=== PATIENT | female | born 2005 | race Caucasian/White ===

== ENCOUNTER 2024-07-04 12:11 | Emergency (ER) | payer OTHER, SELFPAY ==
[2024-07-04 12:19] VITALS: BP 124/78
[2024-07-04 13:39] VITALS: BMI 21.4
[2024-07-04 13:40] VITALS: BP 109/75
[2024-07-04] MEDS: TYLENOL 1000 MG PO (13:54)
--- NOTE | 2024-07-04 13:58 | ED.GENMED ---
History of Present Illness
<Mercy Agee PA-C - Last Filed: 07/04/24 18:11>
General
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
Source: patient
Exam Limitations: none
Time Seen by Provider: 07/04/24 12:51
Nursing documentation reviewed up to this point in time: agreed with
History of Present Illness
History of Present Illness:
This is a 18-year-old female with no past medical history presenting emergency department for concerns of pelvic pain and flank pain for the past 2 weeks. Patient also notes dysuria and hematuria. Patient states that when it started 2 weeks ago,
she thought could be a UTI. She went to urgent care back when this first started and was diagnosed with a UTI and was prescribed Bactrim for 3 days however they ultimately found UTI testing to be negative. She saw her primary in follow-up who
recommended ultrasound however the ultrasound which was negative for any hydronephrosis. She denies chance of STDs, vaginal bleeding, abnormal vaginal discharge. Patient denies any nausea or vomiting, fevers or chills. Patient denies any upper
abdominal pain. Patient denies any sick contacts recently. Patient denies any history of pregnancies or intrauterine devices.
Review of Systems
<Mercy Agee PA-C - Last Filed: 07/04/24 18:11>
Review of Systems
All Other Systems: ROS reviewed and negative except as documented in HPI and ROS
Phy Exam
<Mercy Agee PA-C - Last Filed: 07/04/24 18:11>
Physical Exam
Physical Exam:
General: Patient is well appearing and in no acute distress; non-toxic
Skin: Warm and dry, no rashes or lesions
Head: Normocephalic, atraumatic
Eyes: Sclera non-icteric. EOMs intact.
Cardiac: Regular rate
Peripheral Vascular:
Pulm: Normal respiratory effort
Abdomen: No abdominal tenderness, mild adnexal tenderness
Musculoskeletal:
Neuro: CN II-XII intact, no focal neurologic deficits.
Psychiatric: Appropriate mood and affect.
Course
<Mercy Agee PA-C - Last Filed: 07/04/24 18:11>
Orders/Labs/Results
Orders:
Orders
07/04/24 13:30
CT Abd/pelvis Wo Iv Cont Urgent
Comment:
Reason For Exam: left flank pain, hematuria
IV Insert/Care/Rem.- Treatment PRN
07/04/24 13:31
Test Result ONCE
07/04/24 13:36
Acetaminophen [Tylenol] 1,000 mg PO NOW STA
07/04/24 13:52
Beta Hcg Urine Qualitative Screen [HCG, Urine Qualitative Screen] Urgent
Date Specimen was Collected: 07/04/24
Time Specimen was Collected: 13:41
Complete Blood Count/With Diff Urgent
Comprehensive Metabolic Panel Urgent
Urinalysis Reflex To Culture Urgent
Date Specimen was Collected: 07/04/24
Time Specimen was Collected: 13:41
Urine Microscopic Reflex Cult Urgent
Urine Culture Urgent
THONG Source: U
Specimen Description:
Date Specimen was Collected: 07/04/24
Time Specimen was Collected: 13:41
07/04/24 15:42
US Transvaginal [US Pelvis W Transvag Combined] Urgent
Comment:
Reason For Exam: pelvic pain
07/04/24 15:43
0.9% Sodium Chloride 500 ml [Nss] 500 ml IV BOLUS
Ketorolac [Toradol] 15 mg IV NOW STA
Abnormal Lab Results
07/04/24
13:52
Hct 36.9 L %
(37.0-47.0)
Absolute Neuts (auto) 8.1 H 10^3/uL
(1.4-6.5)
Neutrophils % 79.4 H %
(42.2-75.2)
Lymphocytes % 15.4 L %
(20.5-51.1)
Glucose 101 H mg/dl
(70-99)
Ur Occult Blood Reflex 2+ A
(Negative)
Leukocyte Esterase Rfl 1+ A
(Negative)
Urine RBC 3-6 A /HPF
(0-2)
Urine WBC (Reflex) 11-15 A /HPF
(0-5)
Urine Bacteria (Reflex) Few A
(Negative)
07/04/24 13:52
07/04/24 13:52
Vital Signs
Initial and Last Documented VS:
Initial Vital Signs
Temp Pulse Resp BP Pulse Ox
98.7 F 84 18 124/78 99
07/04/24 12:19 07/04/24 12:19 07/04/24 12:19 07/04/24 12:19 07/04/24 12:19
Last Documented Vital Signs
Temp Pulse Resp BP Pulse Ox
98.7 F 80 18 120/71 97
07/04/24 12:19 07/04/24 17:19 07/04/24 12:19 07/04/24 17:19 07/04/24 17:19
<Mendoza Decker, DO - Last Filed: 07/04/24 13:59>
Orders/Labs/Results
Orders:
Orders
07/04/24 13:30
CT Abd/pelvis Wo Iv Cont Urgent
Comment:
Reason For Exam: left flank pain, hematuria
IV Insert/Care/Rem.- Treatment PRN
07/04/24 13:31
Test Result ONCE
07/04/24 13:36
Acetaminophen [Tylenol] 1,000 mg PO NOW STA
07/04/24 13:52
Beta Hcg Urine Qualitative Screen [HCG, Urine Qualitative Screen] Urgent
Date Specimen was Collected: 07/04/24
Time Specimen was Collected: 13:41
Complete Blood Count/With Diff Urgent
Comprehensive Metabolic Panel Urgent
Urinalysis Reflex To Culture Urgent
Date Specimen was Collected: 07/04/24
Time Specimen was Collected: 13:41
Urine Microscopic Reflex Cult Urgent
Urine Culture Urgent
THONG Source: U
Specimen Description:
Date Specimen was Collected: 07/04/24
Time Specimen was Collected: 13:41
07/04/24 15:42
US Transvaginal [US Pelvis W Transvag Combined] Urgent
Comment:
Reason For Exam: pelvic pain
07/04/24 15:43
0.9% Sodium Chloride 500 ml [Nss] 500 ml IV BOLUS
Ketorolac [Toradol] 15 mg IV NOW STA
Abnormal Lab Results
07/04/24
13:52
Hct 36.9 L %
(37.0-47.0)
Absolute Neuts (auto) 8.1 H 10^3/uL
(1.4-6.5)
Neutrophils % 79.4 H %
(42.2-75.2)
Lymphocytes % 15.4 L %
(20.5-51.1)
Glucose 101 H mg/dl
(70-99)
Ur Occult Blood Reflex 2+ A
(Negative)
Leukocyte Esterase Rfl 1+ A
(Negative)
Urine RBC 3-6 A /HPF
(0-2)
Urine WBC (Reflex) 11-15 A /HPF
(0-5)
Urine Bacteria (Reflex) Few A
(Negative)
07/04/24 13:52
07/04/24 13:52
Vital Signs
Initial and Last Documented VS:
Initial Vital Signs
Temp Pulse Resp BP Pulse Ox
98.7 F 84 18 124/78 99
07/04/24 12:19 07/04/24 12:19 07/04/24 12:19 07/04/24 12:19 07/04/24 12:19
Last Documented Vital Signs
Temp Pulse Resp BP Pulse Ox
98.7 F 80 18 120/71 97
07/04/24 12:19 07/04/24 17:19 07/04/24 12:19 07/04/24 17:19 07/04/24 17:19
<Viktor Man PA-C - Last Filed: 07/07/24 09:28>
Orders/Labs/Results
Orders:
Orders
07/04/24 13:30
CT Abd/pelvis Wo Iv Cont Urgent
Comment:
Reason For Exam: left flank pain, hematuria
IV Insert/Care/Rem.- Treatment PRN
07/04/24 13:31
Test Result ONCE
07/04/24 13:36
Acetaminophen [Tylenol] 1,000 mg PO NOW STA
07/04/24 13:52
Beta Hcg Urine Qualitative Screen [HCG, Urine Qualitative Screen] Urgent
Date Specimen was Collected: 07/04/24
Time Specimen was Collected: 13:41
Complete Blood Count/With Diff Urgent
Comprehensive Metabolic Panel Urgent
Urinalysis Reflex To Culture Urgent
Date Specimen was Collected: 07/04/24
Time Specimen was Collected: 13:41
Urine Microscopic Reflex Cult Urgent
Urine Culture Urgent
THONG Source: U
Specimen Description:
Date Specimen was Collected: 07/04/24
Time Specimen was Collected: 13:41
07/04/24 15:42
US Transvaginal [US Pelvis W Transvag Combined] Urgent
Comment:
Reason For Exam: pelvic pain
07/04/24 15:43
0.9% Sodium Chloride 500 ml [Nss] 500 ml IV BOLUS
Ketorolac [Toradol] 15 mg IV NOW STA
Abnormal Lab Results
07/04/24
13:52
Hct 36.9 L %
(37.0-47.0)
Absolute Neuts (auto) 8.1 H 10^3/uL
(1.4-6.5)
Neutrophils % 79.4 H %
(42.2-75.2)
Lymphocytes % 15.4 L %
(20.5-51.1)
Glucose 101 H mg/dl
(70-99)
Ur Occult Blood Reflex 2+ A
(Negative)
Leukocyte Esterase Rfl 1+ A
(Negative)
Urine RBC 3-6 A /HPF
(0-2)
Urine WBC (Reflex) 11-15 A /HPF
(0-5)
Urine Bacteria (Reflex) Few A
(Negative)
07/04/24 13:52
07/04/24 13:52
Vital Signs
Initial and Last Documented VS:
Initial Vital Signs
Temp Pulse Resp BP Pulse Ox
98.7 F 84 18 124/78 99
07/04/24 12:19 07/04/24 12:19 07/04/24 12:19 07/04/24 12:19 07/04/24 12:19
Last Documented Vital Signs
Temp Pulse Resp BP Pulse Ox
98.7 F 80 18 120/71 97
07/04/24 12:19 07/04/24 17:19 07/04/24 12:19 07/04/24 17:19 07/04/24 17:19
Elsylt;Mercy Agee PA-C - Last Filed: 07/04/24 18:11>
MDM/Problems Addressed
Differential Diagnosis Includes:
Differentials include urine tract affection, pyelonephritis, kidney stone, interstitial cystitis, loin pain hematuria syndrome, ruptured ovarian cyst
MDM/Problems Addressed:
18-year-old female presents emergency department after 2 weeks of pelvic pain with intermittent hematuria and dysuria. Patient also developed flank pain. Patient ultrasound was negative for hydronephrosis. She was started on Bactrim which she
finished a course of but she did have a reaction to. Her culture came back negative at that time. Here in the emergency department, she is well-appearing, she is no tenderness on exam, her vitals are stable, she is afebrile, she has no
leukocytosis. She has no RAJ. Her urinalysis does show hematuria and some white cells but no clear evidence of UTI at this time. Will await culture. Patient had a CAT scan which was negative for any stone. Ultrasound showed normal flow of the
ovaries and no evidence of any other abnormalities. Patient stable for discharge at this point. Did discuss return precautions and did discuss follow-up with urogynecology and urology. Patient stable for discharge.
Chronic conditions affecting care:
n/a
Acute Exacerbation and/or Progression of Chronic Illness:
n/a
<Mercy Agee PA-C - Last Filed: 07/04/24 18:11>
*Critical Care Note
Total Time (30-74mins, 75-104mins- exclusive of procedures): Not Applicable
<Viktor Man PA-C - Last Filed: 07/07/24 09:28>
Update Note
Update Note:
07/07/2024 0925: Left message for patient. UCx positive for staph saprophyticus 100k, will send Rx for Macrobid
ED Attending Note
<Mercy Agee PA-C - Last Filed: 07/04/24 18:11>
-
Portions of this chart may have been created with voice recognition software.� Occasional wrong word or��sound alike� substitutions may have occurred due to the inherent limitations of voice recognition software.
<Mendoza Decker DO - Last Filed: 07/04/24 13:59>
ED Attending Note
Patient seen and examined by attending physician: Yes
I performed the substantive portion of visit, reviewed & personally made and approve the management plan that is documented in note by myself or CHARLOTTE.: Yes
ED Attending Note:
Seen with PA examined independently agree with assessment and plan
Will check labs hCG stone search CT if unremarkable consideration for pelvic ultrasound
Discharge Plan
Departure
Patient Disposition: Home (Routine Discharge)
Date of Disposition: 07/04/24
Time of Disposition: 17:14
Patient with high blood pressure during this ER visit?: No
Condition: Good
Discharge Problem:
Pelvic pain, Hematuria
Instructions: Blood in the urine (hematuria) in adults, Pelvic Pain, BLOOD PRESSURE
Prescriptions:
New
nitrofurantoin macrocrystal 100 mg capsule
100 mg PO BID 5 Days Qty: 10 0RF
No Action
ofloxacin [Ocuflox] 5 ML drops
1 - 2 drops ophthalmic (eye) QID Qty: 1 0RF
Referrals:
Zaheer Colon MD [Non-Admitting Privileges] - Call in 1-3 days for appt
Agusto Moses, [Family Provider] -
Stand Alone Forms: Return to Work
Activity Restrictions/Additional Instructions:
You will receive a call with the results of your urine culture.
Your CAT scan today did not show any evidence of a intra-abdominal abnormality but did show a large amount of stool within the colon. Your ultrasound of the pelvis was negative for any ovarian torsion or ovarian cyst or masses. Your lab work here
is unremarkable.
I recommend starting to take miralax.
PLEASE CALL [phone] to schedule an appointment with [facility]. You can also call the attached number for general urology.
Please return to the emergency department should you develop fevers or chills, acute worsening of your symptoms.
Interventions
Interventions:
*Risk Screen - Suicide Last Done: 07/04/24 13:39
*General Assessment Last Done: 07/04/24 13:39
*Neglect/Abuse Screening Last Done: 07/04/24 13:39
ED- Fall Risk Assessment Last Done: 07/04/24 13:39
*ED COVID-19 Vaccine History Last Done: 07/04/24 13:39
*Nursing Disposition Last Done: 07/04/24 17:19
ED-Female Genitourinary Assessment Last Done: 07/04/24 13:39
Discharge Date and Time
Discharge Date/Time: 07/04/24 17:24
Print Language: BELARUSIAN
[2024-07-04 14:00] VITALS: BP 100/70
[2024-07-04 14:03] LABS: Urine Albumin Negative (Neg - Trace); Urine Bilirubin Negative (Negative); Urine Character Clear (Clear); Urine Color Yellow; Urine Glucose Negative (Negative); Urine Ketone Negative (Negative); Urine Leukocyte 1+ (Negative); Urine Nitrite Negative (Negative); Urine Occult Blood 2+ (Negative); Urine Specific Gravity 1.005 (<1.030); Urine Urobilinogen Negative (Neg - 1+); Urine pH 6.5 (5.0-9.0)
[2024-07-04 14:07] LABS: % Basophils 0.5 % (0-2); % Eosinophils 0.6 % (0-6); % Immature Granulocytes 0.4 % (0-0.5); % Lymphocytes 15.4 % (20.5-51.1); % Monocytes 3.7 % (1.7-9.3); % Neutrophils 79.4 % (42.2-75.2); Absolute Basophils 0.1 10^3/uL (0-0.2); Absolute Eosinophils 0.1 10^3/uL (0-0.7); Absolute Lymphocytes 1.6 10^3/uL (1.2-3.4); Absolute Monocytes 0.4 10^3/uL (0.1-0.6); Absolute Neutrophils 8.1 10^3/uL (1.4-6.5); HCG, Urine Qualitative Screen Negative; Hematocrit 36.9 % (37.0-47.0); Hemoglobin 12.8 g/dL (12.0-16.0); Mean Corp Hgb Conc. 34.7 g/dL (33.0-37.0); Mean Corpuscular Hgb 30.2 pg (27.0-31.0); Mean Platelet Volume 9.5 fL (7.4-10.4); Nucleated Red Blood Cells % 0 %; Platelet Count 232 10^3/uL (130-400); Red Blood Cell Count 4.24 10^6/uL (4.20-5.40); Red Cell Dist. Width 11.7 % (11.5-14.5); White Blood Cell Count 10.2 10^3/uL (4.8-10.8)
[2024-07-04 14:10] LABS: Urine Bacteria Few (Negative)
[2024-07-04 14:29] LABS: ALT (SGPT) 14 U/L (0-35); AST (SGOT) 22 U/L (14-36); Alkaline Phosphatase 42 U/L (38-126); Blood Urea Nitrogen 10 mg/dl (7-17); Calcium 9.9 mg/dl (8.4-10.2); Carbon Dioxide 24 mmol/L (22-30); Chloride 104 mmol/L (98-107); Estimated Creatinine Clearance > 125 ml/min; Glucose 101 mg/dl (70-99); Potassium 3.5 mmol/L (3.5-5.1); Sodium 143 mmol/L (135-145); Total Bilirubin 0.6 mg/dl (0.2-1.3); Total Protein 7.5 g/dl (6.3-8.2); eGFR > 60.00
[2024-07-04] MEDS: NSS 500 IV (16:07)
[2024-07-04] MEDS: TORADOL 15 MG IV (16:07)
[2024-07-04 17:19] VITALS: BP 120/71
== END 2024-07-04 17:24 | disposition home or self-care (01) ==
LOC: EMR 12:11
PROVIDERS: Physician Assistant; EMERGENCY PHYSICIAN Emergency Medicine; FAMILY PHYSICIAN Family Medicine
DX: R31.9 Hematuria, unspecified (principal); R10.2 Pelvic and perineal pain; R30.0 Dysuria; R10.31 Right lower quadrant pain; R10.32 Left lower quadrant pain; N39.0 Urinary tract infection, site not specified; B95.8 Unspecified staphylococcus as the cause of diseases classified elsewhere; Z88.5 Allergy status to narcotic agent
CPT/HCPCS: 99284; 96374; 96361; 74176; 76830; 76856; 80053; 81003; 81015; 81025; 85025; 87086; 87147

== ENCOUNTER 2025-01-10 09:06 | Emergency (ER) | payer OTHER, SELFPAY ==
[2025-01-10 09:09] VITALS: BP 120/86
[2025-01-10 09:35] VITALS: BMI 21.8
--- NOTE | 2025-01-10 09:38 | ED.GENMED ---
History of Present Illness
General
Chief Complaint: Throat Problem
Source: patient
Exam Limitations: none
Time Seen by Provider: 01/10/25 09:12
Nursing documentation reviewed up to this point in time: agreed with
History of Present Illness
History of Present Illness:
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
here with 3 weeks of persistent worsening b/l sore throat
says it started mildly without cold symptoms and fever
just a sore throat
she was taking OTC meds and thought she was getting better until 1 week ago when she started with fevers for a day or two and worsening pain
her voice was never muffled
she also noticed that she had b/l neck gland swelling
pt is able to pass liquids and tolerate secretions but when motrin 400 mg (3 times daily) wears off, she is crying in pain
she went to PCP 4 days ago and was tested for strep, told it was neg, throat uclture was sent and she was empirically started on amoxicillin
she took dose 7 today and hasn't had improvement
no neck stiffness, rash, trouble breathing, cough, abdominal pain, nausa, vomiting
last dose 400 mg motri jonna 730 am
Phy Exam
Physical Exam
Physical Exam:
GENERAL: Alert , in no apparent distress
EYE: pupils equal and reactive
NECK: Supple moderate-sized tender bilateral tonsillar lymphadenopathy, 1 appreciated posterior chain right sided cervical lymph node measuring about 2 cm and mildly tender, no erythema
No meningismus, able to move neck normally
ENT: b/l TM s clear, mild erythematous posterior pharynx with bilateral trace tonsillar exudates, symmetric tonsils, uvula midline, tonsils 2+, normal phonation, no trismus, tolerating secretions
no parotitis
CARDIAC: Regular rate and rhythm, no edema
LUNGS: Clear breath sounds bilaterally, no acute respiratory distress, no wheezes/rales/rhonchi, occ cough
ABDOMEN: Soft, no appreciated splenomegaly without focal tenderness, no r/g, no cvat, normal bowel sounds
NEUROLOGICAL: Alert and oriented, no focal neuro deficits
SKIN: Warm and dry, skin intact.
MUSCULOSKELETAL: No edema, well perfused.
PSYCH: Normal and appropriate interaction.
Course
Orders/Labs/Results
Orders:
Orders
01/10/25 09:30
0.9% Sodium Chloride 1000 ml [Nss] 1,000 ml IV BOLUS
Dexamethasone Sod Phosphate [Decadron] 10 mg IV NOW STA
Ketorolac [Toradol] 15 mg IV NOW STA
01/10/25 09:46
Complete Blood Count/With Diff Urgent
Comprehensive Metabolic Panel Urgent
Manual Differential Urgent
Monotest Urgent
Abnormal Lab Results
01/10/25
09:46
WBC 15.0 H 10^3/uL
(4.8-10.8)
RBC 4.10 L 10^6/uL
(4.20-5.40)
Hct 36.5 L %
(37.0-47.0)
Segmented Neutrophils 30 L %
(42-75)
Lymphocytes (Manual) 52 H %
(20-51)
Monocytes (Manual) 10 H %
(2-9)
BUN 6 L mg/dl
(7-17)
AST 338 H U/L
(14-36)
ALT 475 H U/L
(0-35)
Alkaline Phosphatase 195 H U/L
(38-126)
Monoscreen Positive A
(Negative)
01/10/25 09:46
01/10/25 09:46
Vital Signs
Initial and Last Documented VS:
Initial Vital Signs
Temp Pulse Resp BP Pulse Ox
37.6 C 102 16 120/86 98
01/10/25 09:09 01/10/25 09:09 01/10/25 09:09 01/10/25 09:01/10/25 09:09
Last Documented Vital Signs
Temp Pulse Resp BP Pulse Ox
37.6 C 75 18 100/69 97
01/10/25 09:09 01/10/25 10:00 01/10/25 10:00 01/10/25 10:00 01/10/25 10:00
MDM/Problems Addressed
Differential Diagnosis Includes:
[place], RPA, lymphadenitis
MDM/Problems Addressed:
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 She was tested in her family doctor's
office for strep which was negative but empirically started on amoxicillin and has had 7 doses without improvement. She is able to take Tylenol and ibuprofen which help mitigate her symptoms for a while but when the meds wear off she is very
uncomfortable. She has had normal phonation, no trismus, no neck stiffness, no skin changes to her neck, she is able to swallow. On exam the patient does have appreciated lymphadenopathy bilateral with additional lymph nodes on the right,
symmetric tonsils 2+ with exudate and midline uvula which is not swollen, no sublingual swelling, no parotid gland swelling, she is vaccinated for regular vaccines. Patient has no meningismus. She is not tripoding. I suspected she has
mononucleosis which was positive and she does have a transaminitis along with that. She is not having any abdominal symptoms. Will tell her to stop the amoxicillin, steroids and Toradol given in the ER, will discharge with steroids and low-dose
Tylenol and ibuprofen as needed.
*Critical Care Note
Total Time (30-74mins, 75-104mins- exclusive of procedures): Not Applicable
ED Attending Note
-
Portions of this chart may have been created with voice recognition software.� Occasional wrong word or��sound alike� substitutions may have occurred due to the inherent limitations of voice recognition software.
Discharge Plan
Departure
Patient Disposition: Home (Routine Discharge)
Date of Disposition: 01/10/25
Time of Disposition: 11:06
Patient with high blood pressure during this ER visit?: No
Condition: Fair
Covid-19: Not Applicable
Discharge Problem:
Mononucleosis
Instructions: Mononucleosis (DC)
Prescriptions:
New
prednisone 50 mg tablet
50 mg PO DAILY Qty: 4 0RF
No Action
ofloxacin [Ocuflox] 5 ML drops
1 - 2 drops ophthalmic (eye) QID Qty: 1 0RF
nitrofurantoin macrocrystal 100 mg capsule
100 mg PO BID 5 Days Qty: 10 0RF
Referrals:
Agusto Moses, DO [Family Provider] -
Stand Alone Forms: Back to School
Activity Restrictions/Additional Instructions:
YOU HAVE MONO
IT IS A VIRUS THAT WILL SELF-RESOLVE
FOR YOUR SYMPTOMS
TRY PREDNISONE ONCE A DAY FOR 4 DAYS STARTING TOMORROW
FOR PAIN TAKE 2 MOTRIN 3 TIMES A DAY
IF YOU NEED ADDITIONAL PAIN MEDICATION, TRY TYLENOL 2 REGULAR STRENGTH 2 TIMES A DAY
YOUR LIVER MARKERS ARE MILDLY ELEVATED, THIS IS CONSISTENT WITH MONO INFECTION AND SHOULD RESOLVE; YOU SHOULD HAVE YOUR DOCTOR ORDER FOLLOW UP BLOOD WORK IN A FEW WEEKS
STOP THE AMOXICILLIN
IT CAN CAUSE A RASH
DRINK LIQUIDS TO STAY HYDRATED
AVOID CONTACT SPORTS FOR 3 MONTHS; IF YOU GET INJURED IN THE ABDOMEN,, COME GET CHECKED OUT
RETURN FOR: INABILITY TO SWALLOW, VOICE CHANGE, SKIN COLOR CHANGE TO YOUR NECK, SEVERE PAIN, HIGH FEVER, ABDOMINAL PAIN, VOMITING OR ANY CONCERNS
Interventions
Interventions:
*Risk Screen - Suicide Last Done: 01/10/25 09:09
*General Assessment Last Done: 01/10/25 09:36
*Neglect/Abuse Screening Last Done: 01/10/25 09:09
*ED- Fall Risk Assessment Last Done: 01/10/25 09:36
*ED COVID-19 Vaccine History Last Done: 01/10/25 09:36
*Nursing Disposition Last Done: 01/10/25 11:20
ED-EENT Assessment Last Done: 01/10/25 10:30
ED- Pulmonary Assessment Last Done: 01/10/25 10:30
Discharge Date and Time
Discharge Date/Time: 01/10/25 11:20
Print Language: [id number]
[2025-01-10] MEDS: NSS 1000 IV (09:43)
[2025-01-10] MEDS: DECADRON 10 MG IV (09:43)
[2025-01-10] MEDS: TORADOL 15 MG IV (09:43)
[2025-01-10 10:00] VITALS: BP 100/69
[2025-01-10 10:20] LABS: ALT (SGPT) 475 U/L (0-35); AST (SGOT) 338 U/L (14-36); Alkaline Phosphatase 195 U/L (38-126); Blood Urea Nitrogen 6 mg/dl (7-17); Calcium 9.4 mg/dl (8.4-10.2); Carbon Dioxide 29 mmol/L (22-30); Chloride 103 mmol/L (98-107); Estimated Creatinine Clearance 114 ml/min; Glucose 99 mg/dl (70-99); Potassium 4.4 mmol/L (3.5-5.1); Sodium 138 mmol/L (135-145); Total Bilirubin 0.5 mg/dl (0.2-1.3); Total Protein 7.2 g/dl (6.3-8.2); eGFR > 60.00
[2025-01-10 10:25] LABS: Hematocrit 36.5 % (37.0-47.0); Hemoglobin 12.3 g/dL (12.0-16.0); Mean Corp Hgb Conc. 33.7 g/dL (33.0-37.0); Mean Platelet Volume 9.1 fL (7.4-10.4); Platelet Count 156 10^3/uL (130-400); Red Cell Dist. Width 12.7 % (11.5-14.5)
[2025-01-10 10:31] LABS: Monotest Positive (Negative)
[2025-01-10 11:06] LABS: Absolute Neutrophils -Man Diff 4.8 10^3/uL (1.4-6.5); Atypical Lymphocytes 5 %; Band Neutrophils 2 % (0-3); Lymphocytes 52 % (20-51); Monocytes 10 % (2-9); Myelocytes 1 % (-); Normal RBC Morphology Yes; Platelets Checked Yes; Segmented Neutrophils 30 % (42-75); Total Cells Counted 100
== END 2025-01-10 11:20 | disposition home or self-care (01) ==
LOC: EMR 09:06
PROVIDERS: Physician Assistant; EMERGENCY PHYSICIAN Emergency Medicine; FAMILY PHYSICIAN Family Medicine
DX: B27.90 Infectious mononucleosis, unspecified without complication (principal)
CPT/HCPCS: 99283; 96374; 96375; 96361; 80053; 85025; 86308